=== PATIENT | female | born 1995 | race Caucasian/White ===

== ENCOUNTER 2020-08-19 15:48 | Outpatient (CLI) | payer OTHER | END 2020-08-19 15:49 | disposition home or self-care (01) | LOC: CSHULT 15:48 | PROVIDERS: ATTEND Internal Medicine | DX: N61.0 Mastitis without abscess (principal) ==

== ENCOUNTER 2020-09-13 07:31 | Outpatient (CLI) | payer OTHER | END 2020-09-13 07:32 | disposition home or self-care (01) | LOC: CSHULT 07:31 | PROVIDERS: ATTEND Internal Medicine | DX: R11.2 Nausea with vomiting, unspecified (principal) | CPT/HCPCS: 76705 ==